=== PATIENT | male | born 1960 | race Caucasian/White ===

== ENCOUNTER 2017-04-13 11:14 | Day surgery (SDC) | payer OTHER ==
[~2017-04-13] VITALS: Ht 182.9 cm; Wt 90.7 kg
[2017-04-13] MEDS ORDERED: MEPERIDINE HCL/PF 100 MG/ML AMP ONE (11:28)
[2017-04-13] MEDS ORDERED: SIMETHICONE 40 MG/0.6 ML ML ONE (11:29)
[2017-04-13] MEDS ORDERED: MIDAZOLAM HCL 5 MG/5 ML VIAL ONE (11:29)
[2017-04-13] MEDS ORDERED: GLYCOPYRROLATE 0.2 MG/ML VIAL ONE ×2 (11:30→11:31)
[2017-04-13] MEDS ORDERED: CEFAZOLIN SOD 1 GM/ ISO 50 ML PREMIX IV ONE (12:00)
[2017-04-13] MEDS ORDERED: CEFAZOLIN 1 GM IVPB PREMIX 50 ML IV ONE (12:00)
[2017-04-13] MEDS: MEPERIDINE HCL/PF 100 MG/ML AMP ONE ×2 (12:07→12:09)
[2017-04-13] MEDS: MIDAZOLAM HCL 5 MG/5 ML VIAL ONE ×3 (12:07→12:15)
[2017-04-13 12:57] VITALS: BP_SYST 132
== END 2017-04-13 14:56 | disposition home or self-care (01) ==
LOC: SDS 11:14
PROVIDERS: ATTEND Colon & Rectal Surgery
DX: D12.4 Benign neoplasm of descending colon (principal); D12.5 Benign neoplasm of sigmoid colon; Z86.010 Personal history of colon polyps; I12.0 Hypertensive chronic kidney disease with stage 5 chronic kidney disease or end stage renal disease; E11.22 Type 2 diabetes mellitus with diabetic chronic kidney disease; N18.6 End stage renal disease; E78.5 Hyperlipidemia, unspecified; K21.9 Gastro-esophageal reflux disease without esophagitis; K62.5 Hemorrhage of anus and rectum
CPT/HCPCS: 45380; 88305; J0690; J2175; J2250; J3490

== ENCOUNTER 2018-09-21 06:50 | Inpatient (IN) | payer OTHER ==
[~2018-09-21] VITALS: Ht 182.9 cm; Wt 86.7 kg
--- NOTE | 2018-09-21 07:03 | NUR ---
Pt placed in bed 6
[2018-09-21 07:07] VITALS: BP_SYST 209
--- NOTE | 2018-09-21 07:27 | NUR ---
ER at bedside examining patient.
[2018-09-21] MEDS ORDERED: cloNIDine HCL 0.1 MG TABLET PO ONE ×2 (07:45→18:45)
[2018-09-21] MEDS ORDERED: ACETAMINOPHEN 500 MG TABLET PO ONE (07:45)
--- NOTE | 2018-09-21 08:05 | NUR ---
PT COMES INTO ER WITH C/O GRADUAL ONSET HEADACHE 10/10 SINCE YESTERDAY WITH GENERALIZED MALAISE. C/O NAUSEA NO VOMITTING OR ABD PAIN. PT REPORTS INTERMITTENT BLACK SPOTS VISION CHANGES, BUT DENIES LOSS OF VISION. RESP EVEN AND UNLABORED, IN NAD. DENIES CP OR SOB. ABD SOFT, PERITONEAL ACCESS NOTED TO LLQ, STATES HE DOES IT EVERY NIGHT WITHOUT ANY RECENT CHANGES OR ISSUES. SKIN W/D/I, SLIGHLTY PALE IN COLOR. DENIES ANY DYSURIA/HEMATURIA. DENIES FEVERS/CHILLS. PT ON ANTIHYPERTENSIVES, TAKING PRESCRIBED. DR PAULINO SEEN PT AND ODERS RECEIVED AND CARRIED OUT. WILL CONT TO MONITOR NEEDED. SAFETY PRECUATIONS IN PLACE, CALL LIGHT GIVEN. PLAN OF CARE DISCUSSED AND VERBALIZED UNDERSTANDING.
[2018-09-21 08:35] LABS: BASOPHILS # (AUTO) 0.1 K/uL (0.0-0.2); BASOPHILS % (AUTO) 0.6 % (0.0-2.0); EOSINOPHILS # (AUTO) 0.3 K/uL (0.0-0.4); EOSINOPHILS % (AUTO) 2.4 % (0.0-4.0); HEMATOCRIT 31.1 % (36-54); HEMOGLOBIN 10.2 g/dL (14.0-18.0); LYMPHOCYTES # (AUTO) 1.3 K/uL (1.0-5.5); LYMPHOCYTES % (AUTO) 10.8 % (20.5-51.5); MEAN CORPUSCULAR HEMOGLOBIN 31 pg (27-31); MEAN CORPUSCULAR HGB CONC 33 % (32-36); MEAN CORPUSCULAR VOLUME 93 fL (79.0-98.0); MONOCYTES # (AUTO) 0.9 K/uL (0.0-1.0); MONOCYTES % (AUTO) 7.5 % (1.7-9.3); NEUTROPHILS # (AUTO) 9.3 K/uL (1.8-7.7); NEUTROPHILS % (AUTO) 78.7 % (40.0-70.0); PLATELET COUNT (AUTO) 135 K/uL (130-430); RED BLOOD CELL COUNT(AUTO) 3.33 MIL/uL (4.2-6.2); RED CELL DISTRIBUTION WIDTH 13.9 % (9.0-15.0); WHITE BLOOD COUNT (AUTO) 11.9 K/uL (4.8-10.8)
[2018-09-21 08:52] LABS: CALCIUM 8.9 mg/dL (8.4-11.0); POTASSIUM 5.2 mmol/L (3.5-5.1)
[2018-09-21 08:56] LABS: PROTHROMBIN TIME 9.6 SECS (9.5-12.5)
[2018-09-21 08:58] LABS: ALBUMIN 2.9 g/dL (3.4-4.8); TOTAL BILIRUBIN 0.8 mg/dL (0.0-1.0)
[2018-09-21 09:08] LABS: CREATININE 19.94 mg/dL (0.55-1.30)
--- NOTE | 2018-09-21 09:22 | NUR ---
NO CHANGES IN CONDITION, AWAITING PENDING RESULTS.
[2018-09-21] MEDS ORDERED: hydrALAZINE HCL 20 MG/ML VIAL IVP ONE (09:30)
[2018-09-21] MEDS ORDERED: NITROGLYCERIN 1 INCH (GM) OINT. TP ONE (09:45)
[2018-09-21] MEDS ORDERED: ASPIRIN 81 MG TAB.CHEW PO ONE (09:45)
--- NOTE | 2018-09-21 10:50 | NUR ---
ADMITTING ORDERS RECEIVED, AWAIITNG ADMISSION.
--- NOTE | 2018-09-21 11:49 | NUR ---
room received, belongigs list done and with pt. Pt stable for transfer.
[2018-09-21] MEDS ORDERED: VITD2000 PO (11:51)
[2018-09-21] MEDS ORDERED: DIPH50CA38 PO (11:51)
[2018-09-21] MEDS ORDERED: CALC0.258 PO (11:51)
[2018-09-21] MEDS ORDERED: LINA5TAB2 PO (11:51)
[2018-09-21] MEDS ORDERED: METO50TA7 PO (11:51)
[2018-09-21] MEDS ORDERED: RENA-VITE PO (11:51)
[2018-09-21] MEDS ORDERED: CINA60TA PO (11:51)
[2018-09-21] MEDS ORDERED: LOSA50TA3 PO (11:51)
[2018-09-21] MEDS ORDERED: ESOM40CA53 PO (11:51)
--- NOTE | 2018-09-21 11:52 | NUR ---
Medication reconciliation completed with information provided by RX bottles. Any prior medication reconciliation on file was reviewed and corrected.
--- NOTE | 2018-09-21 11:59 | NUR ---
CONSULTATION PAGED/CALLED Reason for Consultation: [] END STAGE RENAL DISEASE Person Who was Notified: [] ROWAN Consulting Physician: [] DR SANJIV OTERO Review Trainer Specialty: [] NEPHROLOGY Ordering Physician: [] DR JOE
--- NOTE | 2018-09-21 12:00 | NUR ---
Admission Note Received patient from ER with diagnosis of elevated troponin. Initial Plan of Care discussed-patient verbalized understanding. Family at bedside. Oriented to room, call light, pain management and safety.
[2018-09-21 12:10] VITALS: BP_SYST 201
--- NOTE | 2018-09-21 12:12 | NUR ---
Patient will be admitted to care of DR . Admitted to unit. Will go to room . Belongings list completed. Summary report printed. Report will be given at bedside.
--- NOTE | 2018-09-21 12:30 | NUR ---
Note Received report on pt from admit RN Shahnaz Choi. Pt resting in bed. Waiting for MD to come, assess him and let him know the plan of care. Pt still has low grade headache at this time. Pt was orineted to nursing routines and procedures, questions/concerns were answered at this time. No needs noted at this time. Call light within reach. Dr Guerrero on the floor and will be in to see/assess pt shortly.
[2018-09-21] MEDS ORDERED: hydrALAZINE HCL 20 MG/ML VIAL IVP PRN (12:45)
--- NOTE | 2018-09-21 13:20 | NUR ---
SYSTEMS TEST TECHNICIAN DR SANJIV OTERO WAS CALLED RE: UPDATE ON THE PT'S CONDITION. SPOKE TO TIFFANY
[2018-09-21] MEDS ORDERED: PANTOPRAZOLE SODIUM 40 MG TAB PO ONE (13:30)
[2018-09-21] MEDS ORDERED: ONDANSETRON HCL 4 MG/2 ML VIAL IVP PRN (13:30)
[2018-09-21] MEDS ORDERED: ACETAMINOPHEN 325 MG TABLET PO PRN (13:30)
[2018-09-21] MEDS ORDERED: INSULIN ASPART 100 UNITS/ML, 10 ML VIAL (NovoLOG) SUBCUT PRN (13:30)
--- NOTE | 2018-09-21 14:16 | NUR ---
JERARDO FROM [facility] WAS CALLED TO CONFIRM PERITONEAL MACHINE AVAILABILITY FOR USE. KURTZ CONFIRMED AND WILL DO PERITONEAL DIALYSIS TONITE AROUND 2100.
--- NOTE | 2018-09-21 14:29 | NUR ---
CONSULTATION PAGED/CALLED Reason for Consultation: [] N/V RECENT, H/O OF [place] Person Who was Notified: [] CHAN Consulting Physician: [] DR PAULA TIMBER MANAGEMENT PROFESSOR FOR DR FORD Filing Clerk Specialty: [] GI Ordering Physician: [] DR JOE
--- NOTE | 2018-09-21 14:30 | NUR ---
Note Dr Juarez called at 1222 and update on pt was given to (covering for Dr Barrera - curt). Pt also states that he feels nauseated - Dr Guerrero put pt on clear liquids diet instead of Renal diet. Pt had his 2D-echo done at bedside around 1330. Pt denies any needs at this time. Call light within reach.
--- NOTE | 2018-09-21 15:30 | NUR ---
Note Dr Doe came to floor and assessed pt. Questions/concerns were answered at this time. No new orders given at this time. Pt resting in bed. Call light within reach.
--- NOTE | 2018-09-21 15:49 | NUR ---
MADE A F/U CALL TO DR SANJIV OTERO BUT DR Ramonita BROWNE IS SQL DATABASE ADMINISTRATOR NOW RE: ORDER FOR PERITONEAL DIALYSIS. SPOKE TO [place].
--- NOTE | 2018-09-21 16:45 | NUR ---
Note Pt talking on the phone. No needs noted at this time. Call light within reach.
[2018-09-21 17:36] VITALS: BP_SYST 171
--- NOTE | 2018-09-21 18:10 | NUR ---
Note Pt signed consent for Peritoneal Dialysis at this time. Pt ambulated with RN in hallway and had steady gait at this time. No N/V noted all shift. Pt sitting on side of bed and eating his Clear Liquids dinner tray at this time. Pt was checked on q1' and PRN all shift for needs and care. No SOB/resp distress or pain/discomfort noted all shift. IV in right AC intact and patent all shift. Pt's Peritoneal Dialysis access in abdomen intact and patent all shift. No needs noted. Call light within reach. Addendum: 09/21/18 at 1821 by Tish Villar RN Pt had tele unit attached and intact all shift. No chest pain/discomfort noted all shift.
--- NOTE | 2018-09-21 19:35 | NUR ---
Initial Note Received patient awake, alert and oriented. Denies any pain, SOB or n/v at this time. Saline lock. Skin intact and no peripheral edema noted. Ambulates well with steady gait and without any difficulty. Patient will be transferred to another prior to peritoneal dialysis. Noted home medications at the bedside. A friend of the patient is coming and he will bring it home. Needs attended. Care and monitoring will be provided per protocol. Call light within reach. Bed at lowest position at all times. Bed alarm refused for now. Kept warm and comfortable. NSR on monitor.
--- NOTE | 2018-09-21 19:45 | NUR ---
Peritoneal Dialysis Nurse Tamy Peritoneal dialysis nurse arrived. Transferred patient to room 125-A per patient's request. Needs attended. Belongings noted. Peritoneal dialysis started at 8pm and will end at 6am. Patient is aware not to move or ambulate during dialysis. I don't do anything after dialysis is done per QUIRINO Morelos. Will continue to monitor.
[2018-09-21 20:00] VITALS: BP_SYST 181
--- NOTE | 2018-09-21 21:20 | NUR ---
RN Note Peritoneal Dialysis ongoing without any complaints from patients. Due meds given, tolerated well. Latest blood sugar was 159, coverage given. Patient's friend arrived half an hour ago and will be leaving with patient's medications. ice guard tester adjusted the room thermostat and given a warm blanket as well. Will continue to monitor.
[2018-09-21] MEDS: cloNIDine HCL 0.1 MG TABLET PO SCH (21:21)
[2018-09-21] MEDS: LOSARTAN POTASSIUM 50 MG TABLET (COZAAR) PO SCH (21:22)
--- NOTE | 2018-09-21 23:30 | NUR ---
RN Note Arousable. VS stable. Afebrile. Peritoneal Dialysis ongoing. No complaints at this time.
[2018-09-22 01:00] VITALS: BP_SYST 152
--- NOTE | 2018-09-22 01:40 | NUR ---
Troponin #3 Notified lab [facility] to draw troponin level #3 stat.
[2018-09-22 02:25] LABS: BASOPHILS # (AUTO) 0.1 K/uL (0.0-0.2); BASOPHILS % (AUTO) 0.5 % (0.0-2.0); EOSINOPHILS # (AUTO) 0.3 K/uL (0.0-0.4); EOSINOPHILS % (AUTO) 3.1 % (0.0-4.0); HEMOGLOBIN 9.6 g/dL (14.0-18.0); LYMPHOCYTES # (AUTO) 1.3 K/uL (1.0-5.5); LYMPHOCYTES % (AUTO) 11.8 % (20.5-51.5); MEAN CORPUSCULAR HEMOGLOBIN 29 pg (27-31); MEAN CORPUSCULAR HGB CONC 32 % (32-36); MEAN CORPUSCULAR VOLUME 92 fL (79.0-98.0); MONOCYTES # (AUTO) 0.8 K/uL (0.0-1.0); MONOCYTES % (AUTO) 7.1 % (1.7-9.3); NEUTROPHILS # (AUTO) 8.7 K/uL (1.8-7.7); NEUTROPHILS % (AUTO) 77.5 % (40.0-70.0); PLATELET COUNT (AUTO) 135 K/uL (130-430); RED BLOOD CELL COUNT(AUTO) 3.26 MIL/uL (4.2-6.2); RED CELL DISTRIBUTION WIDTH 14.1 % (9.0-15.0); WHITE BLOOD COUNT (AUTO) 11.2 K/uL (4.8-10.8)
[2018-09-22 02:56] LABS: POTASSIUM 4.7 mmol/L (3.5-5.1)
[2018-09-22 02:57] LABS: CALCIUM 8.8 mg/dL (8.4-11.0)
[2018-09-22 03:01] LABS: CREATININE 19.92 mg/dL (0.55-1.30)
[2018-09-22 03:09] LABS: TOTAL BILIRUBIN 0.8 mg/dL (0.0-1.0)
[2018-09-22 03:10] LABS: ALBUMIN 2.9 g/dL (3.4-4.8)
--- NOTE | 2018-09-22 03:10 | NUR ---
Cr=19.92 from 19.94 Lab lorenzo troponin level as well as AM labs. Reordered CMP at 0630 since patient have ongoing peritoneal dialysis. Will recheck BPM after dialysis finished. Lab notified.
[2018-09-22 03:39] LABS: THYROID STIMULATING HORMONE 1.6 uIu/mL (0.36-3.74)
--- NOTE | 2018-09-22 06:51 | NUR ---
End Note Afebrile. BP at 160/82. No complain of SOB, pain or n/v throughout the night. Slept after transferred to room 125A. CMP today. Ambulates in the room and around the unit with steady gait and no SOB. Saline lock. RUQ abd peritoneal dialysis intact. EKG done. Care and monitoring provided per protocol. Needs attended. Call light within reach. Bed alarm refused. Bed at lowest position at all times. Kept warm and comfortable. SR with T elevation on monitor.
--- NOTE | 2018-09-22 07:40 | NUR ---
INITIAL NOTE RECEIVED PATIENT FROM LAWN CARE WORKER. PATIENT AMBULATING IN ROOM WITH STEADY GAIT. ROOM AIR. NO ACUTE DISTRESS. NO SOB. RESPIRATION EVEN AND UNLABORED. SKIN WARM AND DRY TO TOUCH. IV INTACT AND PATENT. RUQ ABD PERITONEAL DIALYSIS ACCESS INTACT. ALL NEESD MET. DISCUSSED PLAN OF CARE WITH PATIENT. BED IN LOW AND LOCKED POSITION. SIDERAIL UP X2. CALL LIGHT IN REACH. CONT TO MONITOR
[2018-09-22 07:50] VITALS: BP_SYST 162
--- NOTE | 2018-09-22 07:55 | NUR ---
SEEN AND EXAMINED BY AT BEDSIDE. MD WILL SCHEDULE EGD
[2018-09-22] MEDS ORDERED: MIDAZOLAM HCL 5 MG/5 ML VIAL ONE (08:07)
[2018-09-22] MEDS ORDERED: SIMETHICONE 40 MG/0.6 ML ML ONE (08:07)
[2018-09-22] MEDS ORDERED: MEPERIDINE HCL/PF 100 MG/ML AMP ONE (08:07)
--- NOTE | 2018-09-22 08:09 | NUR ---
TAKEN FOR EGD PATIENT STABLE. TAKEN TO GI LAB FOR EGD VIA WHEELCHAIR BY DIEGO GREENBERG RN.
[2018-09-22] MEDS ORDERED: fentaNYL CITRATE/PF 100 MCG/2 ML AMP ONE (08:35)
--- NOTE | 2018-09-22 09:20 | NUR ---
BACK FROM EGD PATIENT RETURNED FROM EGD. REPORT RECEIVED FROM HAZEL WIN WITH DX: GASTRITIS AND BX TAKEN FROM ANTRUM AND DUODENUM. PATIENT AWAKE, ALERT, ORIENTED. DENIES PAIN AT THIS TIME. ALL NEEDS MET. CONT TO MONITOR. CALL LIGHT IN REACH.
[2018-09-22] MEDS: CINACALCET HCL 30 MG TABLET PO SCH (09:30)
[2018-09-22] MEDS: cloNIDine HCL 0.1 MG TABLET PO SCH ×2 (09:31→21:20)
[2018-09-22] MEDS: PANTOPRAZOLE SODIUM 40 MG TAB PO SCH (09:31)
[2018-09-22] MEDS: METOPROLOL SUCCINATE 50 MG TAB.SR.24H (TOPROL XL) PO SCH (09:32)
[2018-09-22 09:33] LABS: CALCIUM 9.2 mg/dL (8.4-11.0); POTASSIUM 3.9 mmol/L (3.5-5.1)
[2018-09-22 09:39] LABS: ALBUMIN 3.1 g/dL (3.4-4.8); TOTAL BILIRUBIN 0.9 mg/dL (0.0-1.0)
[2018-09-22 09:42] LABS: CREATININE 19.87 mg/dL (0.55-1.30)
--- NOTE | 2018-09-22 09:50 | NUR ---
SEEN AND EXAMINED BY AT BEDSIDE. REPORTED TO PATIENT'S BP 197/115 HR 78. MD WILL PUT IN ORDERS FOR MEDICATION. CONT TO MONITOR
--- NOTE | 2018-09-22 10:24 | NUR ---
Nutrition Update Chavez Scale 18 noted. Pt admitted for elevated troponin, r/o [place]. Diet: regular, renal BMI: 25.7 kg/m2 RD to follow per nutrition care standards.
[2018-09-22] MEDS ORDERED: hydrALAZINE HCL 25 MG TABLET PO ONE (10:30)
--- NOTE | 2018-09-22 11:54 | NUR ---
BLOOD GLUCOSE PATIENT'S BLOOD GLUCOSE 75 mg/dL WITH NO INUSLIN COVERAGE AND BROUGHT APPLE JUICE FOR PATIENT. TEACHING DONE ON DM. NO S/SX HYPO/HYPERGLYCEMIA NOTED. CONT TO MONITOR. CALL LIGHT IN REACH
--- NOTE | 2018-09-22 14:30 | NUR ---
NOTE PATIENT RESTING. NOTED RISE/FALL OF CHEST. NO S/SX PAIN/DISCOMFORT NOTED. CONT TO MONITOR
--- NOTE | 2018-09-22 17:15 | NUR ---
SEEN AND EXAMINED BY AT BEDSIDE. CONT TO MONITOR
[2018-09-22] MEDS ORDERED: PANTOPRAZOLE GRANULES PACKET 40 MG GT ONE (17:30)
[2018-09-22] MEDS ORDERED: METOPROLOL TARTRATE 50 MG TABLET PO ONE (17:30)
[2018-09-22] MEDS ORDERED: ONDANSETRON HCL 4 MG/2 ML VIAL IVP PRN (17:30)
--- NOTE | 2018-09-22 17:53 | NUR ---
BLOOD GLUCOSE BLOOD SUGAR AT THIS TIME IS 76 mg/dL WITH NO INSULIN COVERAGE. PATIENT SITTING UP IN CHAIR TALKING TO FRIEND. CONT TO MONITOR. CALL LIGHT IN REACH
--- NOTE | 2018-09-22 18:40 | NUR ---
CLOSING NOTE PATIENT AWAKE IN BED. STABLE. DENIES PAIN/DISCOMFORT. ROOM AIR. NO ACUTE DISTRESS. NO SOB. RESP EVEN AND UNLABORED. SKIN WARM AND DRY TO TOUCH. ALL NEEDS MET. CALL LIGHT IN REACH. CONT TO MONITOR. WILL ENDORSE TO ONCOMING SHIFT.
[2018-09-22 20:00] VITALS: BP_SYST 160
--- NOTE | 2018-09-22 20:05 | NUR ---
PATIENT AWAKE ALERT AMBULATING IN [place] STEADY GAIT , FOR PERITONEAL DIALYSIS TODAY .
[2018-09-22] MEDS: LOSARTAN POTASSIUM 50 MG TABLET (COZAAR) PO SCH (21:20)
[2018-09-22] MEDS: hydrALAZINE HCL 25 MG TABLET PO SCH (21:21)
--- NOTE | 2018-09-22 22:15 | NUR ---
COZAAR 50 MG PO APRESOLINE 25 MG PO , CLONIDINE 0.1 MG PO ALSO ADMINISTER ORDERED FOR HTN & EFFECTIVE / HELPFUL .
[2018-09-23] VITALS: BP_SYST 157
--- NOTE | 2018-09-23 | NUR ---
PERITONEAL DIALYSIS IN PROGRESS PATIENT ALERT , JERARDO WIN DID GROUND WIRER MACHINE .
--- NOTE | 2018-09-23 05:20 | NUR ---
HOURLY ROUNDING PATIENT RESTING IS VERBALLY RESPONSIVE , CALL PALOMO WITH PATIENT .
[2018-09-23 06:46] LABS: CALCIUM 8.8 mg/dL (8.4-11.0); POTASSIUM 4.3 mmol/L (3.5-5.1)
[2018-09-23 06:54] LABS: CREATININE 19.73 mg/dL (0.55-1.30)
[2018-09-23 08:00] VITALS: BP_SYST 164
--- NOTE | 2018-09-23 08:00 | NUR ---
Opening Note Report received form NOC shift nurse. Patient is currently resting in bed. Peritoneal diaylsis is in place. IV is on the RAC 20g SL. No signs of SOB or distress noted. Call light is within reach and bed is in low position. Will continue to monitor.
[2018-09-23] MEDS ORDERED: NIFEDIPINE 30 MG TAB.ER.24 PO SCH ×2 (09:00)
[2018-09-23] MEDS: METOPROLOL SUCCINATE 50 MG TAB.SR.24H (TOPROL XL) PO SCH (09:23)
[2018-09-23] MEDS: cloNIDine HCL 0.1 MG TABLET PO SCH (09:24)
[2018-09-23] MEDS: PANTOPRAZOLE SODIUM 40 MG TAB PO SCH (09:24)
[2018-09-23] MEDS: hydrALAZINE HCL 25 MG TABLET PO SCH (09:24)
[2018-09-23] MEDS: CINACALCET HCL 30 MG TABLET PO SCH (09:24)
--- NOTE | 2018-09-23 10:30 | NUR ---
Rounds Patient is resting in bed. No signs of distress noted at the moment.
[2018-09-23 12:00] VITALS: BP_SYST 155
--- NOTE | 2018-09-23 12:37 | NUR ---
Rounds Patient is resting in bed. Call light is within reach.
[2018-09-23] MEDS ORDERED: hydrALAZINE HCL 25 MG TABLET PO SCH (14:00)
[2018-09-23 14:17] VITALS: BP_SYST 164
[2018-09-23] MEDS ORDERED: HYDR-4039 PO (14:22)
[2018-09-23] MEDS ORDERED: CLON0.1T PO (14:23)
--- NOTE | 2018-09-23 14:50 | NUR ---
Transition of Care Note All transition of care instructions were provided to the patient. He verbalized understanding all. IV and ID band were both removed. Patient left the unit in stable condition and with new prescriptions.
== END 2018-09-23 16:10 | disposition home or self-care (01) | DRG 391 ==
LOC: SED 06:50 → STU 09:42
PROVIDERS: ADMIT Internal Medicine; ATTEND Internal Medicine
PROC: 0DB68ZX Excision of Stomach, Via Natural or Artificial Opening Endoscopic, Diagnostic (ICD-10-PCS; 2018-09-22)
PROC: 3E1M39Z Irrigation of Peritoneal Cavity using Dialysate, Percutaneous Approach (ICD-10-PCS; 2018-09-22)
PROC: 3E1M39Z Irrigation of Peritoneal Cavity using Dialysate, Percutaneous Approach (ICD-10-PCS; 2018-09-22)
PROC: 0DB98ZX Excision of Duodenum, Via Natural or Artificial Opening Endoscopic, Diagnostic (ICD-10-PCS; principal; 2018-09-22 08:30)
DX: K29.60 Other gastritis without bleeding (principal); N18.6 End stage renal disease; I13.2 Hypertensive heart and chronic kidney disease with heart failure and with stage 5 chronic kidney disease, or end stage renal disease; Q61.3 Polycystic kidney, unspecified; I50.30 Unspecified diastolic (congestive) heart failure; K52.9 Noninfective gastroenteritis and colitis, unspecified; I16.0 Hypertensive urgency; H53.8 Other visual disturbances; E11.22 Type 2 diabetes mellitus with diabetic chronic kidney disease; F12.90 Cannabis use, unspecified, uncomplicated; Z86.010 Personal history of colon polyps; Z99.2 Dependence on renal dialysis; Z82.71 Family history of polycystic kidney; Z84.1 Family history of disorders of kidney and ureter
CPT/HCPCS: 36415; 43239; 71045; 80048; 80053; 80061; 82550-TC; 82962; 83690-TC; 83880; 84439; 84443-TC; 84484; 85025; 85610-TC; 85730-TC; 87081; 88305; 88312; 88313; 93005; 93306; 96374; 99291; G0378; J0360; J1815; J2175; J2250; J3010